=== PATIENT | male | born 1985 | race African-American/Black ===

== ENCOUNTER 2017-08-15 15:46 | Emergency (ER) | payer OTHER ==
[~2017-08-15] VITALS: Ht 193 cm; Wt 93.0 kg
[2017-08-15] MEDS ORDERED: AZITHROMYCIN 500 MG TABLET PO ONE (22:00)
[2017-08-15] MEDS ORDERED: LIDOCAINE HCL 1% 20ML VIAL (Pyxis) INJ INFIL ONE (22:00)
[2017-08-15] MEDS ORDERED: CEFTRIAXONE SODIUM 250 MG/VIAL IM ONE (22:00)
[2017-08-15 22:29] LABS: CLARITY URINE CLEAR (CLEAR); COLOR URINE YELLOW (YELLOW); GLUCOSE URINE NEGATIVE (NEGATIVE); KETONES URINE NEGATIVE (NEGATIVE); LEUKOCYTE ESTERASE URINE 2+ (NEGATIVE); NITRITE URINE NEGATIVE (NEGATIVE); OCCULT BLOOD URINE NEGATIVE (NEGATIVE); PH URINE 5.5 (4.5-8.0); PROTEIN URINE NEGATIVE (NEGATIVE); SPECIFIC GRAVITY URINE 1.029 (1.005-1.030)
[2017-08-15 23:00] VITALS: BP 124/87
== END 2017-08-15 23:50 | disposition home or self-care (01) ==
LOC: ER 16:29
DX: N34.2 Other urethritis (principal)
CPT/HCPCS: 81001; 96372; 99283; J0696; J3490; Z7610